=== PATIENT | male | born 1990 | race Two or more races ===

== ENCOUNTER 2024-06-16 19:18 | Emergency (ER) | payer SELFPAY ==
[~2024-06-16] VITALS: Ht 170.2 cm; Wt 73.0 kg
[2024-06-16 19:23] VITALS: BP 128/80; PULSE 71; RESP 18; TEMP 97.4; O2SAT 100
== END 2024-06-16 23:45 | disposition left against medical advice (07) ==
LOC: ER 19:18
DX: R11.2 Nausea with vomiting, unspecified (principal); Z53.21 Procedure and treatment not carried out due to patient leaving prior to being seen by health care provider